=== PATIENT | female | born 2000 | race Caucasian/White ===

== ENCOUNTER 2021-08-14 21:24 | Emergency (ER) | payer SELFPAY ==
[~2021-08-14 21:24] MED LIST: CEFUROXIME500 MG PO; MACROBID 100 M100 MG PO; PYRIDIUM200 MG PO
[2021-08-15] MEDS ORDERED: IBUPROFEN600 MG PO (00:54)
== END 2021-08-15 01:29 | disposition home or self-care (01) ==
LOC: ER1 21:24
DX: S09.90XA Unspecified injury of head, initial encounter (principal); S16.1XXA Strain of muscle, fascia and tendon at neck level, initial encounter; S93.402A Sprain of unspecified ligament of left ankle, initial encounter; S20.211A Contusion of right front wall of thorax, initial encounter; W10.9XXA Fall (on) (from) unspecified stairs and steps, initial encounter; Y92.009 Unspecified place in unspecified non-institutional (private) residence as the place of occurrence of the external cause
CPT/HCPCS: 70450; 71111; 72125; 73610; 84703; 99284